=== PATIENT | female | born 1995 | race Caucasian/White ===

== ENCOUNTER 2020-07-03 12:44 | Emergency (ER) | payer SELFPAY ==
[~2020-07-03] VITALS: Ht 157.5 cm; Wt 73.9 kg
[2020-07-03 12:51] VITALS: BP 157/110
--- NOTE | 2020-07-03 13:00 | NUR ---
Gloria pederson in [facility] - 07/03/20 at 1301 by [email or web address] PT AMB TO BED 1.
--- NOTE | 2020-07-03 13:01 | NUR ---
WAIT AT LOBBY.
--- NOTE | 2020-07-03 13:46 | NUR ---
PT AMB TO BED C
--- NOTE | 2020-07-03 13:47 | NUR ---
C/O VAGINAL BLEEDING, LOWER ABD PAIN X 1 WEEK. LMP 05/22/20 MED HX: DENIES
[2020-07-03 14:43] VITALS: BP 143/85
--- NOTE | 2020-07-03 14:43 | NUR ---
Patient discharged with v/s stable. Written and verbal after care instructions given and explained REGARDING MENORRHAGIA. Patient alert, oriented and verbalized understanding of instructions. Ambulatory with steady gait. All questions addressed prior to discharge. ID band removed. Patient advised to follow up with PMD. Rx of PROVERA given. Patient educated on indication of medication including possible reaction and side effects. Opportunity to ask questions provided and answered.
== END 2020-07-03 14:43 | disposition home or self-care (01) ==
LOC: MED 12:44
DX: N93.8 Other specified abnormal uterine and vaginal bleeding (principal)
CPT/HCPCS: 81002; 81025; 99283